=== PATIENT | male | born 1965 | race Caucasian/White ===

== ENCOUNTER 2017-03-01 17:43 | Emergency (ER) | payer BC ==
[2017-03-01] MEDS ORDERED: DIPH,PERTUS(ACELL)TETVAC-LF 0.5 ML VIAL IM ONE (17:53)
[2017-03-01 17:54] VITALS: RESP 20
[2017-03-01] MEDS ORDERED: ceFAZolin 1,000 MG VIAL IM STA (18:03)
--- NOTE | 2017-03-01 18:30 | ED ---
Wound/Laceration HPI - General Chief Complaint: Wound/Laceration Stated Complaint: crushing injury last two fingers left hand Time Seen by Provider: 03/01/17 17:51 Source: patient, RN notes reviewed, old records reviewed Mode of arrival: ambulatory Limitations: no limitations - History of Present Illness Initial Comments: 52-year-old male presents emergency Department chief complaint of left hand laceration. Patient reports that he was cutting a tree with a saw and was trying in the tree was coming down and was going to his truck. Patient ports that he try to push the tree with his left hand. He reports that he has a laceration over his left and fourth finger. Patient states that he does not know the last time he had tetanus shot. Patient reports that he has no skin to the fifth digit. He also has a laceration over the fourth digit. Patient states that he has full range of motion of the finger.Patient denies any recent fever, chills, shortness of breath, chest pain, back pain, abdominal pain, nausea vomiting, numbness or tingling, dysuria or hematuria, constipation or diarrhea, headaches or visual changes, or any other current symptoms - Related Data Home Medications Medication Instructions Recorded Confirmed No Known Home Medications [No 03/01/17 03/01/17 Known Home Medications] Allergies Allergy/AdvReac Type Severity Reaction Status Date / Time No Known Allergies Allergy Verified 03/01/17 17:51 Review of Systems ROS Statement: Those systems with pertinent positive or pertinent negative responses have been documented in the HPI. ROS Other: All systems not noted in ROS Statement are negative. Past Medical History Past Medical History: No Reported History History of Any Multi-Drug Resistant Organisms: None Reported Past Surgical History: No Surgical Hx Reported Past Psychological History: No Psychological Hx Reported Smoking Status: Never smoker Past Alcohol Use History: Daily Past Drug Use History: None Reported General Exam - General Exam Comments Initial Comments: Anxious 52-year-old male. Patient appears in discomfort. Limitations: no limitations General appearance: alert, in no apparent distress Head exam: Present: atraumatic, normocephalic, normal inspection Eye exam: Present: normal appearance, PERRL, EOMI. Absent: scleral icterus, conjunctival injection, periorbital swelling ENT exam: Present: normal exam, mucous membranes moist Neck exam: Present: normal inspection. Absent: tenderness, meningismus, lymphadenopathy Respiratory exam: Present: normal lung sounds bilaterally. Absent: respiratory distress, wheezes, rales, rhonchi, stridor Cardiovascular Exam: Present: regular rate, normal rhythm, normal heart sounds. Absent: systolic murmur, diastolic murmur, rubs, gallop, clicks GI/Abdominal exam: Present: soft, normal bowel sounds. Absent: distended, tenderness, guarding, rebound, rigid Extremities exam: Present: normal inspection, full ROM, normal capillary refill. Absent: tenderness, pedal edema, joint swelling, calf tenderness Right Elbow exam: Present: normal inspection, full ROM Forearm Wrist exam: Present: normal inspection, full ROM Hand Wrist exam: Present: laceration (laceration over fifth and fourth finger. Fifth finger tendon is exposed. Full range of motion. ). Absent: normal inspection Neuro motor exam: Present: wrist extension intact, thumb opposition intact, thumb IP flexion intact, thumb adduction intact, fingers 2-5 abduction intact Vascular: Present: normal capillary refill Back exam: Present: normal inspection Neurological exam: Present: alert, oriented X3, CN II-XII intact Psychiatric exam: Present: normal affect, normal mood Skin exam: Present: warm, dry, intact, normal color. Absent: rash Course Vital Signs 03/01/17 17:52 Temperature 98.2 F Pulse Rate 112 H Respiratory 20 Rate Blood Pressure 136/91 O2 Sat by Pulse 97 Oximetry Procedures - Nerve Block Consent Obtained: verbal consent (fourth and fifth digit) Local Anesthetic Used: Lidocaine 1% Amount of anesthesia used: 5 Side: left Nerve Blocks: digital Procedure Successful: Yes Complications: none Patient Tolerated Procedure: well, no complications Medical Decision Making - Medical Decision Making 52-year-old male with a laceration over his left fourth and fifth digit. Patient has no skin over the fifth digit on the anterior aspect. He does have range of motion. Tendon is exposed. Patient also has noted tuft fracture of the fourth and fifth digit. Patient given an updated tetanus shot. Patient was given 2 g of Kefzol IM. Wound was irrigated and patient was given a nerve block. Discussed with Dr. Hays. Recommends transfer to the trauma center. Patient elects to go to [facility]. I did discuss this with Dr. Davenport [facility]. Patient will be placed in a wet-to-dry dressing. And will drive in private vehicle to [facility]. - Radiology Data Radiology results: report reviewed Disposition Clinical Impression: Open fracture of finger of left hand Disposition: DC/TRNS INTERMEDIATE CARE FAC Condition: Stable Additional Instructions: Go directly to [facility]. Referrals: None,Stated [REFERRING] - 1-2 days Time of Disposition: 18:59
--- NOTE | 2017-03-01 19:02 | XR ---
EXAMINATION TYPE: XR hand complete LT DATE OF EXAM: 03/01/2017 COMPARISON: NONE HISTORY: Pain fourth and fifth digit injured cutdown 3 TECHNIQUE: Three-view left hand FINDINGS: There is amputation of soft tissues at the tuft of the fifth digit. There is a comminuted f racture of the distal fourth digit. No additional areas suspicious for fracture is evident. Remaining soft tissues appear normal. IMPRESSION: 1. Comminuted fracture tuft of the distal fourth digit. 2. Amputation of the soft tissues of the distal fifth digit. There is likely partial amputation of th e tuft of the fifth digit as well.
[2017-03-01 19:16] VITALS: BP 136/84; PULSE 110; TEMP 98
== END 2017-03-01 19:15 ==
LOC: EC 17:43
DX: S62.635B Displaced fracture of distal phalanx of left ring finger, initial encounter for open fracture (principal); S62.637B Displaced fracture of distal phalanx of left little finger, initial encounter for open fracture; Z23 Encounter for immunization; W20.8XXA Other cause of strike by thrown, projected or falling object, initial encounter; Y93.89 Activity, other specified
CPT/HCPCS: 73130; 90715; 99284; 64450; 96372; 90471; J0690